=== PATIENT | female | born 1945 | race Caucasian/White ===

== ENCOUNTER 2017-09-25 13:37 | Emergency (ER) | payer OTHER ==
[~2017-09-25] VITALS: Ht 149.9 cm; Wt 75.2 kg
[~2017-09-25 13:37] MED LIST: CIPROFLOXACIN500 M1 PO; CLEOCIN300 MG PO; COUMADIN1 MG PO; DILAUDID2 MG PO; LORTAB 5-325 M1 EACH PO; LOVENOX80 MG/0.8 SC; STOOL SOFTENER100 MG; VITAMIN B12-FO1 EACH PO; XARELTO20 MG PO; ZOFRAN ODT8 MG PO
[2017-09-25 17:49] VITALS: BP 189/86
== END 2017-09-25 17:50 | disposition home or self-care (01) ==
LOC: EME 13:37
PROC: 3E0234Z Introduction of Serum, Toxoid and Vaccine into Muscle, Percutaneous Approach (ICD-10-PCS; principal; 2017-09-25)
DX: S02.2XXA Fracture of nasal bones, initial encounter for closed fracture (principal); S00.83XA Contusion of other part of head, initial encounter; S60.221A Contusion of right hand, initial encounter; W18.30XA Fall on same level, unspecified, initial encounter; Y92.481 Parking lot as the place of occurrence of the external cause
CPT/HCPCS: 70450; 70486; 73130; 99281; 99283